=== PATIENT | male | born 1980 | race Caucasian/White ===

== ENCOUNTER 2017-01-28 17:54 | Emergency (ER) | payer MEDICAID ==
[~2017-01-28] VITALS: Ht 188 cm; Wt 100.0 kg
[2017-01-28] MEDS ORDERED: ONDANSETRON HCL 4 MG/2 ML VIAL IVP ONE (18:30)
[2017-01-28] MEDS ORDERED: SODIUM CHLORIDE 0.9% 1,000 ML IV ONE (18:30)
[2017-01-28] MEDS ORDERED: DICYCLOMINE HCL 20 MG TABLET PO ONE (18:30)
[2017-01-28 18:42] LABS: ANION GAP 8 mmol/L (8-16); CALCIUM, TOTAL 9.3 mg/dL (8.8-10.5); CARBON DIOXIDE 28 mmol/L (22-29); CHLORIDE 100 mmol/L (98-107); CREATININE 1.08 mg/dL (0.60-1.30); GLOMERULAR FILTR. RATE CALC > 60 mL/min (>60); POTASSIUM 4.1 mmol/L (3.5-5.1); SODIUM SERUM 136 mmol/L (136-145); UREA NITROGEN, BLOOD 11 mg/dL (7-18)
[2017-01-28] MEDS ORDERED: LOPERAMIDE HCL 2 MG CAPSULE PO ONE (18:45)
[2017-01-28 18:49] LABS: ALANINE AMINOTRANSFERASE 49 U/L (12-78); ALBUMIN 4.1 g/dL (3.4-5.0); ASPARTATE AMINOTRANSFERASE 33 U/L (15-37); BILIRUBIN,TOTAL 0.8 mg/dL (0.1-1.0); TOTAL PROTEIN, SERUM 8.4 g/dL (6.4-8.2)
[2017-01-28 18:53] LABS: BASOPHILS % (AUTO) 0.3 % (0.0-2.0); EOSINOPHILS % (AUTO) 0.3 % (1.0-6.0); HEMATOCRIT 44.4 % (41-53); HEMOGLOBIN 15.7 g/dL (13.5-17.5); LYMPHOCYTES # (AUTO) 1.1 K/uL (1.0-4.8); LYMPHOCYTES % (AUTO) 19.3 % (22.0-44.0); MEAN CORPUSCULAR HEMOGLOBIN 30.6 pg (26.0-34.0); MEAN CORPUSCULAR HGB CONC 35.3 G/dL (31.0-37.0); MEAN CORPUSCULAR VOLUME 87 fL (80-100); MONOCYTES # (AUTO) 0.8 K/uL (0.1-1.0); MONOCYTES % (AUTO) 15.1 % (2.0-9.0); NEUTROPHILS # (AUTO) 3.7 K/uL (1.8-7.7); PLATELET COUNT (AUTO) 174 K/uL (150-450); RED BLOOD CELL COUNT(AUTO) 5.12 MIL/uL (4.50-5.90); RED CELL DISTRIBUTION WIDTH 12.6 % (11.5-14.5); WHITE BLOOD COUNT (AUTO) 5.6 K/uL (4.5-11.0)
[2017-01-28 20:33] LABS: APPEARANCE,URINE CLEAR (CLEAR); GLUCOSE, URINE (UA) NEGATIVE (NEGATIVE); KETONES,URINE NEGATIVE (NEGATIVE); LEUKOCYTE ESTERASE ,URINE NEGATIVE (NEGATIVE); OCCULT BLOOD,URINE NEGATIVE (NEGATIVE); PROTEIN,URINE NEGATIVE (NEGATIVE)
[2017-01-28 20:38] LABS: RBC,URINE 0-2 /HPF (0-2); SQUAMOUS EPITHELIAL CELL,UR Rare /LPF (None Seen); WBC,URINE 0-2 /HPF (0-5)
[2017-01-28 20:52] VITALS: BP 131/85
== END 2017-01-28 21:08 | disposition home or self-care (01) ==
LOC: EMS 17:57
DX: R11.2 Nausea with vomiting, unspecified (principal); R19.7 Diarrhea, unspecified; R10.9 Unspecified abdominal pain; M79.1 Myalgia
CPT/HCPCS: 36415; 80053; 81001; 83690; 85025; 96361; 96374; 99284; J2405; J7030

== ENCOUNTER 2018-07-06 18:52 | Emergency (ER) | payer MEDICAID ==
[~2018-07-06] VITALS: Ht 188 cm; Wt 100.0 kg
[2018-07-06] MEDS ORDERED: IBUPROFEN 800 MG TABLET PO ONE (21:00)
[2018-07-06] MEDS ORDERED: LIDOCAINE/PF 1% 2 ML VIAL IM ONE (21:00)
[2018-07-06] MEDS ORDERED: GENTAMICIN SULFATE 0.3% OPHTHALMIC SOLUTION 5 ML OD ONE (21:00)
[2018-07-06] MEDS ORDERED: CefTRIAXone SODIUM 1 GM/VIAL IM ONE (21:00)
[2018-07-06] MEDS ORDERED: ERYTHROMYCIN 0.5% 3.5 GM TUBE OPHTHALMIC OINTMENT OD ONE (21:15)
[2018-07-06 21:33] VITALS: BP 124/78
== END 2018-07-06 21:37 | disposition home or self-care (01) ==
LOC: EMS 18:54
DX: H01.001 Unspecified blepharitis right upper eyelid (principal)
CPT/HCPCS: 96372; 99283; J0696; J3490